=== PATIENT | female | born 1940 | race African-American/Black ===

== ENCOUNTER 2017-10-29 11:26 | Inpatient (IN) | payer MEDICARE, MEDICAID ==
[~2017-10-29] VITALS: Ht 157.5 cm; Wt 69.9 kg
--- NOTE | 2017-10-29 12:30 | NUR ---
RECEIVED TO ROOM 2213 VIA AMBULANCE. A/O X3. SKIN IS INTACT WITHOUT REDNESS. HAD MODERATE AMOUNT OF COFFEE GROUND STOOL. SKIN CARE PER SELF. DENIES NEEDS.
[2017-10-29] MEDS ORDERED: CIPRO500 MG PO (13:14)
[2017-10-29] MEDS ORDERED: FLAGYL500 MG PO (13:14)
[2017-10-29] MEDS ORDERED: ZANTAC150 MG PO (13:15)
[2017-10-29] MEDS ORDERED: PROTONIX40 MG PO (13:15)
[2017-10-29] MEDS ORDERED: PLAVIX75 MG PO (13:15)
[2017-10-29] MEDS ORDERED: CLARITIN 10 MG10 MG PO (13:16)
[2017-10-29] MEDS ORDERED: FUROSEMIDE40 MG PO (13:17)
[2017-10-29] MEDS ORDERED: BAYER CHEWABLE81 MG PO (13:17)
[2017-10-29 13:18] VITALS: BMI 28.2
[2017-10-29 13:37] VITALS: BP 133/39
[2017-10-29 16:00] LABS: HEMATOCRIT 30.1 % (36.0-48.0); HEMOGLOBIN 10.1 g/dL (12-16)
[2017-10-29 16:19] VITALS: BP 133/39
[2017-10-29 20:00] VITALS: BP 112/45
[2017-10-29 21:59] LABS: HEMATOCRIT 28.6 % (36.0-48.0); HEMOGLOBIN 9.8 g/dL (12-16)
[2017-10-30 03:36] LABS: BASOPHILS 0.3 % (0-2); EOSINOPHILS 2.6 % (0-7); HEMATOCRIT 28.4 % (36.0-48.0); HEMOGLOBIN 9.8 g/dL (12-16); IMMATURE GRANULOCYTES 0.3 % (0-5); LYMPHOCYTES 39.6 % (15-50); MCHC 34.5 g/dL (31.0-37.0); MCV 81.1 fL (80.0-100.0); MEAN PLATELET VOLUME 9.1 fL (7.4-10.4); MONOCYTES 8.2 % (2-11); PLATELET COUNT 320 10x3/uL (130-400); RDW 13.5 % (11.5-14.5); WBC 3.9 10x3/uL (4.8-10.8)
[2017-10-30 03:52] LABS: ALBUMIN 2.7 g/dL (3.4-5.0); ANION GAP 14.3 mmol/L (8-16); BILIRUBIN - TOTAL 0.5 mg/dL (0.2-1.3); CALCIUM 8.3 mg/dL (8.5-10.1); CARBON DIOXIDE 23.9 mmol/L (21.0-32.0); POTASSIUM - SERUM 3.2 mmol/L (3.5-5.1); PROTEIN - SERUM 5.8 g/dL (6.4-8.2)
[2017-10-30 04:00] VITALS: BP 110/50
--- NOTE | 2017-10-30 07:00 | NUR ---
REPORT RECIEVED ASSUMED CARE. PATIENT IN BED WITH IV INTACT. NO OCMPLAINTS. CALL LIGHT WITHINJ REACH.
[2017-10-30 09:52] LABS: HEMATOCRIT 29.5 % (36.0-48.0); HEMOGLOBIN 9.9 g/dL (12-16)
[2017-10-30 09:57] VITALS: BP 142/33
[2017-10-30 13:44] VITALS: Ht 157.5 cm; Wt 69.9 kg
[2017-10-30 15:28] LABS: HEMOGLOBIN 10.1 g/dL (12-16)
[2017-10-30 16:31] VITALS: BP 128/65
--- NOTE | 2017-10-30 18:50 | NUR ---
PATIENT IN BED WITH IV INTACT. NO COMPLAINTS. SITTING UP IN BED WITH CALL LIGHT WITHIN REACH.
--- NOTE | 2017-10-30 19:25 | NUR ---
RECIEVED SHIFT REPORT. PT IS LYING IN BED. ALERT AND ORIENTED AND ABLE TO VERBALIZE NEEDS. IV IS PATENT AND FLUIDS ARE RUNNING PER ORDER. PT IS AMBULATORY BUT WAS INSTRUCTED TO CALL FOR ANY ASSISTANCE NEEDED. PT STATES PAIN IS 7/10. NO NEEDS ARE VERBALIZED AT THIS TIME. WILL CONTINUE TO MONITOR. SIDE RAILS ARE UP X 2. BED IS IN LOWEST POSITION. CALL LIGHT IS WITHIN REACH.
[2017-10-30 20:00] VITALS: BP 147/60
--- NOTE | 2017-10-30 20:11 | NUR ---
SHIFT ASSESSMENT COMPLETED. MEDICATION HUNG PER ORDER. NO NEEDS ARE VOICED. WILL MONITOR. SIDE RAILS X 2. BED LOW. CALL LIGHT IN REACH.
[2017-10-30 21:41] LABS: HEMATOCRIT 27.4 % (36.0-48.0); HEMOGLOBIN 9.4 g/dL (12-16)
--- NOTE | 2017-10-30 22:15 | NUR ---
STOOL SENT TO LAB FOR WARRENTED TESTS.
[2017-10-31 04:00] VITALS: BP 155/70
[2017-10-31 06:39] LABS: BASOPHILS 0.3 % (0-2); EOSINOPHILS 2.6 % (0-7); HEMATOCRIT 28.4 % (36.0-48.0); HEMOGLOBIN 9.7 g/dL (12-16); IMMATURE GRANULOCYTES 0.3 % (0-5); LYMPHOCYTES 39.7 % (15-50); MCH 27.8 pg (26.0-34.0); MCHC 34.2 g/dL (31.0-37.0); MCV 81.4 fL (80.0-100.0); MEAN PLATELET VOLUME 9.3 fL (7.4-10.4); MONOCYTES 8.2 % (2-11); NEUTROPHILS 48.9 % (40-80); PLATELET COUNT 356 10x3/uL (130-400); RBC 3.49 10x6/uL (4.00-5.40); RDW 13.4 % (11.5-14.5); WBC 3.8 10x3/uL (4.8-10.8)
[2017-10-31 06:51] LABS: ALBUMIN 2.5 g/dL (3.4-5.0); ANION GAP 13.1 mmol/L (8-16); BILIRUBIN - TOTAL 0.4 mg/dL (0.2-1.3); CALCIUM 8.5 mg/dL (8.5-10.1); CARBON DIOXIDE 23.2 mmol/L (21.0-32.0); POTASSIUM - SERUM 3.3 mmol/L (3.5-5.1)
[2017-10-31 08:45] VITALS: BP 130/36
[2017-10-31] MEDS ORDERED: FLAGYL500 MG PO (09:11)
[2017-10-31] MEDS ORDERED: BENTYL 20 MG TA20 MG PO (09:12)
[2017-10-31] MEDS ORDERED: LEVAQUIN750 MG PO (09:12)
--- NOTE | 2017-10-31 10:53 | NUR ---
Patient Name: SUKUMAR COLON Admission Status: Elective Accout number: [id number] Admission Date: 10-29-2017 : 1940 Admission Diagnosis: Attending: ENA SUAREZ Current LOS: 2 Anticipated DC Date: 10-31-2017 Planned Disposition: Home Primary Insurance: [facility] Discharge Planning Comments: CM MET WITH PATIENT REGARDING D/C NEEDS AND PLANS.PATIENT IS DISCHARGING TODAY. PATIENT LIVES ALONE AND HAS NO STEPS OR STAIRS AT HER HOME. PATIENTS FRIEND (SERA) WILL DRIVE HER HOME AT DISCHARGE. PATIENT IS INDEPENDENT WITH HER CARE AND HAS NO DME AT HOME. PATIENTS PCP IS DR. PENNINGTON IN [place] AND USES [facility] IN [place]. PATIENT DOES NOT WANT HOME HEALTH AND DENIES ANY OTHER NEEDS FOR DISCHARGE. CM WILL CONTINUE TO FOLLOW PATIENT WITH D/C NEEDS AND PLANS. PCP DR. PENNINGTON ([place]) [place] ([place]) [phone] SERA (FRIEND) [phone] Floor Associate: Monalisa Allison Is the patient Alert and Oriented? Yes 0 * How many steps to enter\exit or inside your home? 0 0 * PCP DR. PENNINGTON IN [place] 0 * [facility] IN [place] 0 * Preadmission Environment Home Alone 0 * ADLs Independent 0 * Equipment None 0 * List name and contact numbers for known caregivers / representatives who currently or will assist patient after discharge: SERA (FRIEND) [phone] * Community resources currently utilized None 0 * Additional services required to return to the preadmission environment? Yes 0 * Can the patient safely return to the preadmission environment? Yes 0 * Has this patient been hospitalized within the prior 30 days at any hospital? No 0 Grand Total: 0
--- NOTE | 2017-10-31 12:00 | NUR ---
PATIENT RECIEVED DC INSTRUCTIONS. VERBALIZED UNDERSTANDING. NO QUETIONS AT THIS TIME. IV REMOVED WITH CATH TIP INTACT. FAMILY AT SIDE. AWAITING WC FOR DC.
== END 2017-10-31 13:02 | disposition home or self-care (01) | DRG 392 ==
LOC: D.MS 11:26
PROVIDERS: ADMIT Family Medicine
DX: K57.92 Diverticulitis of intestine, part unspecified, without perforation or abscess without bleeding (principal); D62 Acute posthemorrhagic anemia; I10 Essential (primary) hypertension; I25.10 Atherosclerotic heart disease of native coronary artery without angina pectoris